=== PATIENT | female | born 1990 | race Caucasian/White ===

== ENCOUNTER 2016-09-06 11:44 | Day surgery (SDC) | payer OTHER ==
[~2016-09-06 11:44] MED LIST: MIDAZOLAM 2 MG/2 ML VIAL IVP ONE; diphenhydrAMINE INJ 50 MG/ML VIAL IVP ONE; fentaNYL 250 MCG/5 ML VIAL IVP ONE
[2016-09-06] MEDS ORDERED: LACTATED RINGERS 1,000 ML IV ONE (12:42)
== END 2016-09-06 11:45 | disposition home or self-care (01) ==
PROC: 0DB98ZX Excision of Duodenum, Via Natural or Artificial Opening Endoscopic, Diagnostic (ICD-10-PCS; 2016-09-06)
PROC: 0DB38ZX Excision of Lower Esophagus, Via Natural or Artificial Opening Endoscopic, Diagnostic (ICD-10-PCS; 2016-09-06)
PROC: 0DBB8ZX Excision of Ileum, Via Natural or Artificial Opening Endoscopic, Diagnostic (ICD-10-PCS; principal; 2016-09-06 13:00)
PROC: 0DBE8ZX Excision of Large Intestine, Via Natural or Artificial Opening Endoscopic, Diagnostic (ICD-10-PCS; 2016-09-06 13:00)
DX: R19.7 Diarrhea, unspecified (principal); K21.9 Gastro-esophageal reflux disease without esophagitis
CPT/HCPCS: 43239; 45380; 88305; J3010; J7120

== ENCOUNTER 2017-03-28 11:54 | Outpatient (CLI) | payer OTHER ==
[2017-03-28] MEDS ORDERED: GADOBUTROL 10 MMOL/10 ML VIAL IVP ONE (12:55)
--- NOTE | 2017-03-28 13:35 | MRI Report ---
EXAM: MRI BRAIN WITHOUT AND WITH CONTRAST EXAM DATE: 03/28/2017 01:06 PM. CLINICAL HISTORY: Optical migraines. Right side vision loss. Vertigo. Left body numbness. COMPARISON: None. TECHNIQUE: Multiplanar, multisequence T1-weighted and fluid-sensitive MR sequences of the brain were performed. Sequences optimized for routine evaluation. Other: None. Without and with IV Contrast: Wit hout and with 8.5 mm Gadavist. FINDINGS: Brain Volume: Normal for age. Parenchyma/Dura: No masses, infarcts, or hemorrhage. No white matter lesions identified. Ventricles/Cisterns: Normal. No hydrocephalus. Sinuses: No acute appearing sinus or mastoid disease. Bones: Normal. Other: The major arterial skull base flow voids are present. IMPRESSION: Normal brain MRI. [facility] Referring Provider Line: [phone] SITE ID: [id number]
== END 2017-03-28 11:55 | disposition home or self-care (01) ==
LOC: DI 11:54
PROVIDERS: ATTEND Family Medicine
DX: G43.109 Migraine with aura, not intractable, without status migrainosus (principal)
CPT/HCPCS: 70553; A9585